=== PATIENT | male | born 1975 | race African-American/Black ===

== ENCOUNTER 2020-04-06 11:24 | Day surgery (SDC) | payer OTHER ==
[2020-04-06 12:15] LABS: PLATELET COUNT 269 K/uL (142-355)
[2020-04-06 12:37] LABS: POTASSIUM 4.1 mmol/L (3.6-5.2)
== END 2020-04-06 13:29 | disposition home or self-care (01) ==
LOC: OR 11:24
PROVIDERS: Internal Medicine Gastroenterology
PROC: 0DB68ZZ Excision of Stomach, Via Natural or Artificial Opening Endoscopic (ICD-10-PCS; principal; 2020-04-06)
PROC: 0DB88ZZ Excision of Small Intestine, Via Natural or Artificial Opening Endoscopic (ICD-10-PCS; 2020-04-06)
PROC: 0D738ZZ Dilation of Lower Esophagus, Via Natural or Artificial Opening Endoscopic (ICD-10-PCS; 2020-04-06)
DX: K22.4 Dyskinesia of esophagus (principal); K21.0 Gastro-esophageal reflux disease with esophagitis; K22.2 Esophageal obstruction; K29.50 Unspecified chronic gastritis without bleeding; R13.19 Other dysphagia; R10.13 Epigastric pain
CPT/HCPCS: 36415; 80053; 85027; J2250; J3010